=== PATIENT | female | born 1955 | race Hispanic/Latino ===

== ENCOUNTER 2020-03-23 07:15 | Outpatient (CLI) | payer MEDICARE, MEDICAID, OTHER ==
[2020-03-23 16:09] LABS: Hemoglobin 13.9 g/dL (12.0-16.0); Mean Corpuscular HGB CONC 33.6 g/dL (32.0-36.0); Mean Corpuscular Hemoglobin 31.6 pg (27.0-31.0); Mean Corpuscular Volume 94.1 fL (78.0-98.0); Mean Platelet Volume 8.7 fL (7.4-10.4); Platelet Count 334 thou/uL (130-400); RBC Distribution Width 11.4 % (11.5-14.5); Red Blood Cell (RBC) Count 4.38 mill/uL (4.20-5.40); White Blood Cell (WBC) Count 8.1 thou/uL (4.8-10.8)
[2020-03-23 16:27] LABS: INR-International Normal Ratio 0.9; PTT 31.1 sec (22.9-36.1); Prothrombin Time 12.5 sec (12.0-14.7)
[2020-03-23 16:38] LABS: Anion Gap 14 mmol/L (10-20); BUN (Urea Nitrogen) 14 mg/dL (9.8-20.1); Calc. Creatinine Clearance 0 mL/min (70-130); Calcium 8.9 mg/dL (7.8-10.44); Carbon Dioxide 26 mmol/L (23-31); Chloride 104 mmol/L (98-107); Estimated GFR-MDRD 67; Glucose 115 mg/dL (80-115); Potassium 4.3 mmol/L (3.5-5.1); Sodium 140 mmol/L (136-145)
[2020-03-24 14:54] LABS: SARS-CoV-2 MS2 Positive; SARS-CoV-2 N Gene Negative; SARS-CoV-2 S Gene Negative; SARS-CoV-2 by NAA Not Detected (NotDetected); SARS-CoV-2 orf1ab Negative
--- NOTE | 2020-03-25 13:09 | EKG ---
Test Reason : Blood Pressure : / mmHG Vent. Rate : 057 BPM Atrial Rate : 057 BPM P-R Int : 146 ms QRS Dur : 076 ms QT Int : 438 ms P-R-T Axes : 065 058 065 degrees QTc Int : 426 ms Sinus bradycardia Otherwise normal ECG Confirmed by EVERAROD RIOS MD ([id number] on 03/25/2020 1:09:24 PM Referred By: [facility] Confirmed By:EVERARDO RIOS MD
== END 2020-03-23 07:16 | disposition home or self-care (01) ==
LOC: LABBT 07:15
PROVIDERS: ATTEND Internal Medicine Cardiovascular Disease
DX: Z01.818 Encounter for other preprocedural examination (principal); Z20.828 Contact with and (suspected) exposure to other viral communicable diseases; I47.1 Supraventricular tachycardia
CPT/HCPCS: 80048; 85027; 85610; 85730; 93005; U0003; 87635; 93010

== ENCOUNTER 2020-03-28 07:12 | Day surgery (SDC) | payer MEDICARE, MEDICAID ==
[2020-03-26 11:26] VITALS: BMI 26.7
[2020-03-28] MEDS ORDERED: Midazolam HCl 2 mg/2 ml Vial ONE (09:05)
[2020-03-28] MEDS ORDERED: PROPOFOL 200 MG/20 ML VIAL ONE (10:29)
[2020-03-28] MEDS ORDERED: Lidocaine 1% PF 5 ML VIAL ONE (10:29)
[2020-03-28] MEDS ORDERED: PHENYLEPHRINE-NS 100 MCG/ML 10 ML SYRINGE ONE (10:29)
[2020-03-28] MEDS ORDERED: EPHEDRINE 25 MG/5 ML SYRINGE ONE (10:29)
[2020-03-28] MEDS ORDERED: Lidocaine 1% (PF) 30 ML VIAL ONE (12:11)
[2020-03-28] MEDS ORDERED: PROPOFOL 20 ML ONE (12:17)
[2020-03-28] MEDS ORDERED: Fentanyl 100 MCG/2 ML VIAL ONE (12:17)
[2020-03-28] MEDS ORDERED: Heparin 10,000 UNITS/ 10 ML VIAL ONE (12:31)
[2020-03-28] MEDS ORDERED: Isoproterenol 0.2 MG/1 ML AMP ONE (12:31)
[2020-03-28] MEDS ORDERED: Propofol 1,000 MG/100 ML VIAL IV ONE (12:37)
--- NOTE | 2020-03-28 18:50 | OP ---
DATE OF PROCEDURE: 03/28/2020 PROCEDURE PERFORMED: Electrophysiology study and radiofrequency ablation. REASON FOR PROCEDURE: Ms. Frazier is a 64-year-old woman with history of paroxysmal supraventricular tachycardia. She is here for EP study and ablation. DESCRIPTION OF PROCEDURE: The patient received deep sedation by Anesthesia specialist. The left and right femoral venous area was prepped, draped, anesthetized using subcutaneous lidocaine. Under ultrasound guidance, both femoral veins were cannulated x2. On the left side, a 6 and 8-Zimbabwean sheath were used to advance an octapolar and a DecaNav diagnostic catheters in the right atrium where it was used to obtain 3D map of the right atrium, His bundle, CS and right ventricular positions. Pacing, mapping, and recordings obtained from each location including pacing left atrium from the CS. Following findings were noted. Baseline rhythm was sinus rhythm with RR cycle length of 860 milliseconds. AK was 174 milliseconds, QRS 91 milliseconds, QT 408 milliseconds, HV was 33 milliseconds. The AV Wenckebach cycle length was 360 milliseconds. Retrograde Wenckebach cycle length was 320 milliseconds. AV becky ERP was 600/300 milliseconds. Concentric retrograde VA conduction was noted and no accessory pathway was identified. Dual AV becky physiology was present at baseline. Burst atrial pacing and catheter manipulation was able to induce a narrow complex tachycardia with very short VA timing less than 40 milliseconds. The tachycardia cycle length was about 360 milliseconds similar to the presenting tachycardia. Overdrive ventricular pacing entering the tachycardia and VA-VA pattern was noted post termination of ventricular pacing suggestive of AV becky reentrant tachycardia. From the right femoral venous access, an 8-Zimbabwean short sheath was used to advance a 4 mm ablation catheter to the right atrium. 3D map of the His bundle and CS area was obtained with this catheter and radiofrequency ablation was delivered at the slow pathway area. Total of 13 lesions delivered at 2 minutes and 57 seconds in duration. 50 watt energy was applied with temperature cutoff of 60 degrees. Junctional beats were noted during the ablation and no AV block was noted. Following this, Isuprel was administered and the pacing maneuvers were reattempted. The AV Wenckebach cycle length was 260 milliseconds. Retrograde Wenckebach cycle length was 300 milliseconds. HV interval did not change through the procedure. We were unable to reinduce the AV becky reentrant tachycardia on and off Isuprel. Catheter was removed from the body. Cine revealed no change in the cardiac silhouette. Vascular closure was performed on all three femoral venous access sites. CONCLUSION: 1. Easily inducible AV becky reentrant tachycardia. 2. Slow pathway modification eliminated reinducibility. 3. Dual AV becky physiology at baseline, not noted in the end of the case. 4. No evidence of accessory pathway. 5. Normal His-Purkinje and AV becky function otherwise pre and post study. PLAN: Routine post ablation care and monitor for recurrent arrhythmias. Job ID: [id number] [facility]
== END 2020-03-28 16:50 | disposition home or self-care (01) ==
LOC: SDC 07:12
PROVIDERS: ATTEND Internal Medicine Cardiovascular Disease
PROC: 02583ZZ Destruction of Conduction Mechanism, Percutaneous Approach (ICD-10-PCS; principal; 2020-03-28)
PROC: 02K83ZZ Map Conduction Mechanism, Percutaneous Approach (ICD-10-PCS; 2020-03-28)
PROC: 4A023FZ Measurement of Cardiac Rhythm, Percutaneous Approach (ICD-10-PCS; 2020-03-28)
PROC: 4A0234Z Measurement of Cardiac Electrical Activity, Percutaneous Approach (ICD-10-PCS; 2020-03-28)
DX: I47.1 Supraventricular tachycardia (principal); I10 Essential (primary) hypertension; E78.5 Hyperlipidemia, unspecified; E03.9 Hypothyroidism, unspecified; E11.9 Type 2 diabetes mellitus without complications; Z79.82 Long term (current) use of aspirin; Z79.84 Long term (current) use of oral hypoglycemic drugs; Z79.899 Other long term (current) drug therapy; Z88.6 Allergy status to analgesic agent; Z88.8 Allergy status to other drugs, medicaments and biological substances
CPT/HCPCS: 76942; 93613; 93623; 93653; C1730; C1732; J1644; J2001; J2250; J2704; J3010

== ENCOUNTER 2021-07-30 08:37 | Outpatient (CLI) | payer MEDICARE, MEDICAID | END 2021-07-30 08:38 | disposition home or self-care (01) | LOC: BICMAMMO 08:37 | PROVIDERS: ATTEND Student in an Organized Health Care Education/Training Program | DX: Z12.31 Encounter for screening mammogram for malignant neoplasm of breast (principal); Z13.820 Encounter for screening for osteoporosis; M81.0 Age-related osteoporosis without current pathological fracture; M85.851 Other specified disorders of bone density and structure, right thigh; M85.852 Other specified disorders of bone density and structure, left thigh | CPT/HCPCS: 77063; 77067; 77080 ==

== ENCOUNTER 2023-04-10 13:23 | Outpatient (CLI) | payer OTHER | END 2023-04-10 13:24 | disposition home or self-care (01) | LOC: BICMAMMO 13:23 | PROVIDERS: ATTEND Student in an Organized Health Care Education/Training Program | DX: Z12.31 Encounter for screening mammogram for malignant neoplasm of breast (principal) | CPT/HCPCS: 77063; 77067 ==

== ENCOUNTER 2024-05-10 14:22 | Outpatient (CLI) | payer OTHER | END 2024-05-10 14:23 | disposition home or self-care (01) | LOC: BICMAMMO 14:22 | PROVIDERS: ATTEND Student in an Organized Health Care Education/Training Program | DX: Z12.31 Encounter for screening mammogram for malignant neoplasm of breast (principal) | CPT/HCPCS: 77063; 77067 ==